=== PATIENT | male | born 1955 | race African-American/Black ===

== ENCOUNTER 2018-03-24 18:41 | Emergency (ER) | payer OTHER, SELFPAY ==
[2018-03-24 18:51] VITALS: BP 182/109; PULSE 83; RESP 18; TEMP 37.1; O2SAT 97; BMI 33.0
--- NOTE | 2018-03-24 19:14 | PC.NURSE ---
pt reports, developed right hip pain 3 days ago, right thigh like a knot, denies trauma,injuries. has been taking ibuprofen.
--- NOTE | 2018-03-24 19:19 | PC.NURSE ---
pain worsen , when he is laying down.
--- NOTE | 2018-03-24 19:26 | ED.LOWEXIN ---
HPI - Extremity Injury (Lower) General Chief Complaint: Extremity Injury, Lower Stated Complaint: HIP PAIN Time Seen by Provider: 03/24/18 18:45 History of Present Illness HPI Narrative: HPI 62-year-old male presents for evaluation of proximally 5 days of right-sided lumbar pain as sharp, radiates on his posterior lateral thigh to his knee, is worsened by movement, relieved by rest. Patient notes that pain began when he woke up. Patient presents due to persistence of pain. Patient notes that when he woke up with sometimes he was having spasming type pain in his anterior right 5. Muscle spasms do not appear to have reoccurred. Patient denies a history of recent trauma, fevers, chills, unexpected weight loss, decreased perineal sensation when toileting, difficulty urinating or incontinence, morning stiffness, IV drug use, alcoholism, recent invasive medical procedures, presyncope, abdominal pain, or dysuria. Smoking: denies. Anticoagulation: denies anticoagulation and Plavix, denies stents. M/S/F/SocHx notable for: please see HPI; remainder reviewed with patient and in chart. ROS: Negative constitutional, eye, cardiovascular, pulmonary, GI, , MSK, skin, neurologic, psychiatric, endocrine unless noted in the HPI. Exam Gen: Pleasant, non-toxic appearing, resting comfortably. HEENT: NC, AT, PEERL, EOMI. Resp: CTAB Card: RRR GI: ND, non-tender to palpation, no palpable midline masses, no palpable midline pulsatility. : No CVA tenderness to percussion bilaterally. MSK: No visible deformities, strength and tone WNL. No lower thoracic or lumbar spinal TTP, step offs or deformities. Focal right-sided tenderness to palpation immediately above the right buttock on a mid scapular line, no palpable abnormalities, no further paraspinal TTP. Right thigh visually normal without palpable abnormalities. BLE with 2+ DP pulses in sensation intact to touch. Skin: Normal color with no visible lesions. Neuro: AO x 3, no facial asymmetry, vision and hearing WNL. Straight leg raise test - negative right, negative left. BLE distal sensation intact, 5/5 dorsiflexion / plantarflexion bilaterally. Gait: mildly antalgic,otherwise normal, narrow based gait, able to walk unassisted and stand on heels and toes with full apparent strength. Psych: Mood and affect appropriate. MDM Previous chart, nursing note, and vitals reviewed. A: 62-year-old male presents for evaluation of proximally 5 days of right-sided lumbar pain as sharp, radiates on his posterior lateral thigh to his knee, is worsened by movement, relieved by rest. DDx & Evaluation: * Cauda equina - consider unlikely given normal perineal sensation, lack of incontinence or urinary retention. * Infection - abscess, vertebral osteomyelitis, and diskitis are unlikely as the patient is immunocompetent and is with an absence of infectious signs and risk factors on ROS, and a lack of point tenderness. * Fracture - doubt given the absence of spinal TTP and lack of prior trauma * Seronegative spondyloarthropathy - unlikely, no further evaluation currently indicated given the absence of morning stiffness and negative RA, psoriatic arthritis, and autoimmune disease history. * AAA or Dissection - given the absence of tobacco use, the lack of a palpable pulsatile abdominal mass, abdominal pain, presyncope, an abdominal aortic aneurysm as well as dissection is considered unlikely and further investigation is not currently indicated. * Spontaneous hematoma - doubt given lack of identifiable coagulopathies. * Spinal Metastases - given the unremarkable ROS, absence of point spinal tenderness on exam and the lack of discernible neurological deficit, no further testing regarding this etiology is currently indicated. * Soft tissue - suspect right side crampy type pain secondary to a muscle spasm, no findings suggestive of cellulitis, abscess, or necrotizing fasciitis on exam. Patient immunocompetent. * Consider sciatic type pain to be the most likely cause of patient's symptoms. Counseled patient regarding natural course of sciatic back pain, given return to care instructions, and recommendation for primary care physician follow up. Discharged with RX for [place] 5-325??8 tablets. Patient was notified of their elevated blood pressure and recommended to follow up with their primary care physician. As the patient is without evidence of acute end organ dysfunction no further emergent evaluation is indicated as per the 2013 [facility] clinical policy. Impression: Back Pain. (please reference below for remainder of encounter information) Related Data Allergies Allergy/AdvReac Type Severity Reaction Status Date / Time lisinopril [LISINOPRIL] Allergy Unknown tongue Unverified 02/13/18 12:04 swell SULFA Allergy Mild NOT SURE Uncoded 02/13/18 12:04 [facility] Social History Smoking Status: Former smoker Exam Initial Vital Signs Initial Vital Signs: Vital Signs Temperature 98.8 F 03/24/18 18:51 Pulse Rate 83 03/24/18 18:51 Respiratory Rate 18 03/24/18 18:51 Blood Pressure 182/109 H 03/24/18 18:51 Pulse Oximetry 97 03/24/18 18:51 Course Vital Signs - 8 hr 03/24/18 18:51 Temperature 98.8 F Pulse Rate 83 Respiratory Rate 18 Blood Pressure 182/109 H Pulse Oximetry 97
== END 2018-03-24 19:39 | disposition home or self-care (01) ==
PROVIDERS: Emergency Provider Emergency Medicine; PCP Family Medicine
DX: M54.5 Low back pain (principal)
CPT/HCPCS: 99282; 99283

== ENCOUNTER 2022-07-19 08:36 | Emergency (ER) | payer OTHER, SELFPAY ==
[2022-07-19] VITALS (16 sets, daily range): BP systolic 112–191; BP diastolic 61–135; PULSE 95–116; RESP 14–30; TEMP 36.5–38.6; O2SAT 94–99; BMI 34.2
--- NOTE | 2022-07-19 09:08 | ED_ITS ---
HPI - SOB/Dyspnea General Chief Complaint: Shortness of Breath/Dyspnea Stated Complaint: Thinks dehydrated- trouble urinating Time Seen by Provider: 07/19/22 08:53 Source: patient Mode of arrival: Family Vehicle Limitations: no limitations History of Present Illness HPI Narrative: The patient is a 66-year-old male history of hypertension hyperlipidemia ongoing shortness of breath presenting today with difficulty urinating. He states this morning he tried to go urinate he could not get his penis out any pedal over himself. He denies any swelling. He says he has had ongoing shortness of breath for a while he does take an Advair inhaler to help with his breathing. He denies any history of smoking COPD or asthma. He says over the last couple of days his breathing has gotten significantly worse it is definitely worse with exertion. He denies any orthopnea. He denies any peripheral edema. He has absolutely no chest pain. He says he has had a fever and a cough as well. He is currently febrile temperature 101.1?. He has a mild headache but denies any neck pain. He also states that he traveled 15 days ago to [place] for a family reunion. No prior history of PE or DVT Related Data Previous Rx's Medication Instructions Recorded hydrocodone 5 mg-acetaminophen 325 See Rx Instructions .Route 03/24/18 mg tablet ([place]) .COMPLEX PRN pain #8 tabs prednisone 20 mg tablet 40 mg PO DAILY #10 tabs 07/19/22 Allergies Allergy/AdvReac Type Severity Reaction Status Date / Time lisinopril [LISINOPRIL] Allergy Unknown tongue Verified 07/19/22 10:00 swell Sulfa (Sulfonamide Allergy Unknown Verified 07/19/22 10:00 Antibiotics) Review of Systems Review of Systems Narrative: GENERAL: See HPI HEENT: Denies sinus pain, ear pain, sore throat, difficulty swallowing, neck pain RESPIRATORY: See HPI CARDIOVASCULAR: Denies chest pain, palpitations, orthopnea, edema GASTROINTESTINAL: Denies nausea, vomiting, abdominal pain, diarrhea, constipation, melena. : Denies dysuria, frequency, incontinence, hematuria, urinary retention, flank pain. MUSCULOSKELETAL: Denies weakness, joint pain, or bony pain SKIN: No rash, no erythema, no pruritus NEUROLOGIC: Denies weakness, dizziness, headache, numbness, change in speech, confusion PSYCHIATRIC: No concerning psychosocial issues. 12 point review of systems is negative except for those stated above and HPI Patient History Social History Smoking Status: Former smoker Smoking Status: Former smoker tobacco type: cigarettes alcohol intake frequency: holidays/special occasions only Substance Use Type: does not use Exam Initial Vital Signs Initial Vital Signs: Vital Signs Pulse Rate 115 H 07/19/22 08:46 Blood Pressure 135/77 07/19/22 08:46 Pulse Oximetry 94 07/19/22 08:46 GENERAL: Alert pleasant 66-year-old male mild respiratory distress HEENT: Head atraumatic,EOMI, pupils reactive, face symmetric, moist mucous membranes CARDIOVASCULAR: Regular rate and rhythm without murmurs, rubs or gallops. RESPIRATORY: Tachypnea decreased breath sounds minimal wheezing speaks in full sentences ABDOMEN: Soft, nontender. Normoactive bowel sounds all 4 quadrants. No guarding or rebound. EXTREMITIES: Normal range of motion, no clubbing or edema. Neurovascularly intact NEUROLOGICAL: Alert and oriented x4 SKIN: Warm, dry, no laceration, no petechiae, no rashes or lesions. Scores CURB-65 Confusion: No BUN >19mg/dL (>7mmol/L): No Respiratory rate greater or equal to 30: Yes SBP <90mmHg or DBP less or equal to 60mmHg: No Age 65 or Older: No CURB-65 Total: 1 Score 0-1 Outpatient care, Score 2 Inpt vs. Obs, Score 3 or over Inpt admit with ICU for score of 4-5 Course Orders Ordered: ED Orders 07/19/22 10:21 CT angio chest PE protocol Stat 07/19/22 10:50 Respiratory Panel (Film Array) Stat Discontinued Medications Acetaminophen (Acetaminophen 325 Mg Tablet) 975 mg PO NOW ONE Stop: 07/19/22 09:13 Last Admin: 07/19/22 09:18 Dose: 975 mg Documented By: ROBYN Albuterol (Albuterol 2.5 Mg/3 Ml Neb (Adult)) 2.5 mg INH NOW ONE Stop: 07/19/22 11:12 Last Admin: 07/19/22 11:38 Dose: 2.5 mg Documented By: BISHOP Albuterol/Ipratropium (Albuterol/Ipratropium 3 Ml Ampul) 3 ml INH NOW ONE Stop: 07/19/22 09:09 Last Admin: 07/19/22 09:16 Dose: 3 ml Documented By: GELY Sodium Chloride (Normal Saline 0.9%) 500 mls @ 1,000 mls/hr IV BOLUS ONE Stop: 07/19/22 09:39 Last Infusion: 07/19/22 09:53 Dose: 0 mls/hr Documented By: Admin: 07/19/22 09:18 Dose: 1,000 mls/hr Documented By: ROBYN Ceftriaxone Sodium 2,000 mg/ (Sodium Chloride) 100 mls @ 200 mls/hr IV NOW ONE Stop: 07/19/22 09:59 Last Infusion: 07/19/22 11:23 Dose: 0 mls/hr Documented By: Admin: 07/19/22 10:38 Dose: 200 mls/hr Documented By: ROBYN Azithromycin 500 mg/ Dextrose 250 mls @ 250 mls/hr IV NOW ONE Stop: 07/19/22 09:59 Last Infusion: 07/19/22 12:27 Dose: 0 mls/hr Documented By: Admin: 07/19/22 11:24 Dose: 250 mls/hr Documented By: ROBYN Sodium Chloride (Normal Saline 0.9%) 1,000 mls @ 1,000 mls/hr IV BOLUS PRN PRN Reason: Fluid replacement Last Infusion: 07/19/22 12:36 Dose: 0 mls/hr Documented By: Admin: 07/19/22 11:34 Dose: 1,000 mls/hr Documented By: ROBYN Ketorolac Tromethamine (Ketorolac 30 Mg/Ml Vial) 15 mg IV NOW ONE Stop: 07/19/22 09:59 Last Admin: 07/19/22 10:38 Dose: 15 mg Documented By: ROBYN Methylprednisolone (Methylprednisolone 125 Mg/2 Ml Vial) 125 mg IV NOW ONE Stop: 07/19/22 11:12 Last Admin: 07/19/22 11:34 Dose: 125 mg Documented By: ROBYN Vital Signs Vital signs: Vital Signs - 8 hr 07/19/22 11:38 07/19/22 11:00 07/19/22 11:00 Temperature Pulse Rate 97 H 97 H Respiratory Rate 16 18 Blood Pressure 129/66 Pulse Oximetry 99 97 Oxygen Delivery Method Room Air 07/19/22 11:30 07/19/22 11:30 07/19/22 12:00 Temperature 99.5 F Pulse Rate 95 H Respiratory Rate 20 Blood Pressure 112/62 114/63 Pulse Oximetry 96 Oxygen Delivery Method 07/19/22 12:00 07/19/22 12:30 Temperature Pulse Rate 96 H 96 H Respiratory Rate 19 22 Blood Pressure Pulse Oximetry 96 97 Oxygen Delivery Method MDM - SOB/Dyspnea Lab Data Result diagrams: 07/19/22 09:04 07/19/22 09:04 Labs: Lab Results 07/19/22 07/19/22 07/19/22 Range/Units 09:04 09:04 09:04 WBC 12.1 H (4.5-11.0) X10^3/uL RBC 4.03 L (4.5-5.9) X10^6/uL Hgb 12.1 L (13.5-17.5) g/dL Hct 35.7 L (41-53) % MCV 88.6 (80-100) fL MCH 30.0 (26-34) PG MCHC 33.9 (30-36) % RDW 12.8 (11.6-14.8) % Plt Count 199 (150-400) X10^3/uL Neut % (Auto) 82.8 H (50-75) % Lymph % (Auto) 8.5 L (25-40) % [place] % (Auto) 8.0 (3-14) % Eos % (Auto) 0.0 L (2-4) % Baso % (Auto) 0.7 (0-2) % Neut # (Auto) 10143 H (8267-7477) /uL Lymph # (Auto) 1000 L (6625-4031) /uL [place] # (Auto) 1000 H (0-900) /uL Eos # (Auto) 0 (0-450) /uL Baso # (Auto) 100 (0-100) /uL D-Dimer (<500) ng/ml Sodium 133 L (137-145) mmol/L Potassium 3.6 (3.4-5.1) mmol/L Chloride 97 L (98-107) mmol/L Carbon Dioxide 26 (22-32) mmol/L BUN 15 (9-20) mg/dL Creatinine 1.31 H (0.66-1.25) mg/dL Estimated GFR > 60 (>60) mL/min BUN/Creatinine Ratio 11.5 (6-22) Glucose 140 H (80-110) mg/dL Lactate 2.3 H (0.7-2.1) mmol/L Calcium 8.7 (8.4-10.2) mg/dL Total Bilirubin 1.1 (0.2-1.3) mg/dL AST 55 (17-59) IU/L ALT 41 (<50) IU/L Alkaline Phosphatase 89 (38-126) U/L Total Creatine Kinase (55-170) U/L CK-MB (CK-2) (<2.37) ng/mL CK-MB (CK-2) Rel Index (1.5-5.0) % Troponin I (0.01-0.034) ng/mL NT-Pro-B Natriuret Pep (<125) pg/mL Total Protein 8.4 H (6.3-8.2) g/dL Albumin 4.1 (3.5-5.0) g/dL Globulin 4.3 H (1.7-4.1) g/dL Albumin/Globulin Ratio 1.0 (1.0-2.8) Procalcitonin (<0.5) ng/mL Chlamy pneumoniae PCR (Not Detect) Adenovirus (PCR) (Not Detect) B. pertussis DNA (PCR) (Not Detecte) B.parapertussis DNA PCR (Not Detecte) Coronavirus OC43 (PCR) (Not Detect) Coronavirus HKU1 (PCR) (Not Detect) Coronavirus 229E (PCR) (Not Detect) SARS-CoV-2 (PCR) (Negative) Coronavirus NL63 (PCR) (Not Detect) Human Metapneumovir PCR (Not Detect) Influenza Type A (PCR) (Not Detect) Influenza Type B (PCR) (Not Detect) M. pneumoniae (PCR) (Not Detect) Parainfluenza 1 (PCR) (Not Detect) Parainfluenza 2 (PCR) (Not Detect) Parainfluenza 3 (PCR) (Not Detect) Parainfluenza 4 (PCR) (Not Detect) RSV (PCR) (Not Detect) Entero/Rhino (PCR) (Not Detect) 09/14/22 09/14/22 09/14/22 Range/Units 09:04 09:04 09:04 WBC (4.5-11.0) X10^3/uL RBC (4.5-5.9) X10^6/uL Hgb (13.5-17.5) g/dL Hct (41-53) % MCV (80-100) fL MCH (26-34) PG MCHC (30-36) % RDW (11.6-14.8) % Plt Count (150-400) X10^3/uL Neut % (Auto) (50-75) % Lymph % (Auto) (25-40) % [place] % (Auto) (3-14) % Eos % (Auto) (2-4) % Baso % (Auto) (0-2) % Neut # (Auto) (1729-3088) /uL Lymph # (Auto) (8460-1358) /uL [place] # (Auto) (0-900) /uL Eos # (Auto) (0-450) /uL Baso # (Auto) (0-100) /uL D-Dimer 1466 H (<500) ng/ml Sodium (137-145) mmol/L Potassium (3.4-5.1) mmol/L Chloride (98-107) mmol/L Carbon Dioxide (22-32) mmol/L BUN (9-20) mg/dL Creatinine (0.66-1.25) mg/dL Estimated GFR (>60) mL/min BUN/Creatinine Ratio (6-22) Glucose (80-110) mg/dL Lactate (0.7-2.1) mmol/L Calcium (8.4-10.2) mg/dL Total Bilirubin (0.2-1.3) mg/dL AST (17-59) IU/L ALT (<50) IU/L Alkaline Phosphatase (38-126) U/L Total Creatine Kinase 1420 H (55-170) U/L CK-MB (CK-2) 2.27 (<2.37) ng/mL CK-MB (CK-2) Rel Index 0.2 L (1.5-5.0) % Troponin I < 0.012 (0.01-0.034) ng/mL NT-Pro-B Natriuret Pep 324 H (<125) pg/mL Total Protein (6.3-8.2) g/dL Albumin (3.5-5.0) g/dL Globulin (1.7-4.1) g/dL Albumin/Globulin Ratio (1.0-2.8) Procalcitonin (<0.5) ng/mL Chlamy pneumoniae PCR (Not Detect) Adenovirus (PCR) (Not Detect) B. pertussis DNA (PCR) (Not Detecte) B.parapertussis DNA PCR (Not Detecte) Coronavirus OC43 (PCR) (Not Detect) Coronavirus HKU1 (PCR) (Not Detect) Coronavirus 229E (PCR) (Not Detect) SARS-CoV-2 (PCR) Negative (Negative) Coronavirus NL63 (PCR) (Not Detect) Human Metapneumovir PCR (Not Detect) Influenza Type A (PCR) (Not Detect) Influenza Type B (PCR) (Not Detect) M. pneumoniae (PCR) (Not Detect) Parainfluenza 1 (PCR) (Not Detect) Parainfluenza 2 (PCR) (Not Detect) Parainfluenza 3 (PCR) (Not Detect) Parainfluenza 4 (PCR) (Not Detect) RSV (PCR) (Not Detect) Entero/Rhino (PCR) (Not Detect) 07/19/22 07/19/22 Range/Units 09:04 10:50 WBC (4.5-11.0) X10^3/uL RBC (4.5-5.9) X10^6/uL Hgb (13.5-17.5) g/dL Hct (41-53) % MCV (80-100) fL MCH (26-34) PG MCHC (30-36) % RDW (11.6-14.8) % Plt Count (150-400) X10^3/uL Neut % (Auto) (50-75) % Lymph % (Auto) (25-40) % [place] % (Auto) (3-14) % Eos % (Auto) (2-4) % Baso % (Auto) (0-2) % Neut # (Auto) (3623-0753) /uL Lymph # (Auto) (5208-0792) /uL [place] # (Auto) (0-900) /uL Eos # (Auto) (0-450) /uL Baso # (Auto) (0-100) /uL D-Dimer (<500) ng/ml Sodium (137-145) mmol/L Potassium (3.4-5.1) mmol/L Chloride (98-107) mmol/L Carbon Dioxide (22-32) mmol/L BUN (9-20) mg/dL Creatinine (0.66-1.25) mg/dL Estimated GFR (>60) mL/min BUN/Creatinine Ratio (6-22) Glucose (80-110) mg/dL Lactate (0.7-2.1) mmol/L Calcium (8.4-10.2) mg/dL Total Bilirubin (0.2-1.3) mg/dL AST (17-59) IU/L ALT (<50) IU/L Alkaline Phosphatase (38-126) U/L Total Creatine Kinase (55-170) U/L CK-MB (CK-2) (<2.37) ng/mL CK-MB (CK-2) Rel Index (1.5-5.0) % Troponin I (0.01-0.034) ng/mL NT-Pro-B Natriuret Pep (<125) pg/mL Total Protein (6.3-8.2) g/dL Albumin (3.5-5.0) g/dL Globulin (1.7-4.1) g/dL Albumin/Globulin Ratio (1.0-2.8) Procalcitonin 0.24 (<0.5) ng/mL Chlamy pneumoniae PCR Not detected (Not Detect) Adenovirus (PCR) Not detected (Not Detect) B. pertussis DNA (PCR) Not detected (Not Detecte) B.parapertussis DNA PCR Not detected (Not Detecte) Coronavirus OC43 (PCR) Not detected (Not Detect) Coronavirus HKU1 (PCR) Not detected (Not Detect) Coronavirus 229E (PCR) Not detected (Not Detect) SARS-CoV-2 (PCR) Not detected (Negative) Coronavirus NL63 (PCR) Not detected (Not Detect) Human Metapneumovir PCR Not detected (Not Detect) Influenza Type A (PCR) Detected H (Not Detect) Influenza Type B (PCR) Not detected (Not Detect) M. pneumoniae (PCR) Not detected (Not Detect) Parainfluenza 1 (PCR) Not detected (Not Detect) Parainfluenza 2 (PCR) Not detected (Not Detect) Parainfluenza 3 (PCR) Not detected (Not Detect) Parainfluenza 4 (PCR) Not detected (Not Detect) RSV (PCR) Not detected (Not Detect) Entero/Rhino (PCR) Not detected (Not Detect) Imaging Data Chest x-ray: Radiologist's Impression: XRay Report Signed Patient: Casie Nye MR#: [id number] : 1955 Acct:[id number] Age/Sex: 66 / M Date of Service: 07/19/22 Loc: ED Accession Number: [id number] ?? Procedure: XR chest 1V Ordering Provider: Donna Escobar D.O. PROCEDURE:? XR CHEST 1V ? INDICATIONS:? sob fever ? TECHNIQUE:? One view of the chest was acquired.? ? COMPARISON:? [facility], , CHEST 1 VIEW, 10/31/2015, 7:46.? [facility], , CHEST 1 VIEW, 05/21/2013, 5:43. ? FINDINGS:? ? Surgical changes and devices:? None.? ? Lungs and pleura:? Lungs are clear.? No pleural effusions or pneumothorax.? ? Mediastinum:? Mediastinal contours appear normal.? Heart size is normal.? ? Bones and chest wall:? No suspicious bony lesions.? Overlying soft tissues appear unremarkable.? ? IMPRESSION:? No acute radiographic abnormality. ? ? Dictated by: Rocky White M.D. on 07/19/2022 at 9:17 ? ? Approved by: Rocky White M.D. on 07/19/2022 at 9:18 ? CT scan - chest: Radiologist's Impression: Signed Patient: Casie Nye MR#: [id number] : 1955 Acct:[id number] Age/Sex: 66 / M Date of Service: 07/19/22 Loc: ED Accession Number: [id number] ?? Procedure: CT angio chest PE protocol Ordering Provider: Donna Escobar D.O. PROCEDURE:? CT ANGIO CHEST PE PROTOCOL ? INDICATIONS:? fever sob high dimer ? TECHNIQUE:? After the administration of intravenous contrast, 2 mm thick sections acquired from the pulmonary apices to the posterior costophrenic angles.? For radiation dose reduction, the following was used:? automated exposure control, adjustment of mA and/or kV according to patient size.? ? COMPARISON:? None. ? FINDINGS:? Image quality:? Excellent.? ? Pulmonary arteries:? Pulmonary arteries are normal in size, and demonstrate no intraluminal filling defects to suggest central pulmonary embolism.? ? Lungs and pleura:? Minimal pleural based atelectasis and or infiltrate noted in the left lower lobe.? No pleural effusions or pneumothorax.? Central and peripheral airways are patent.? ? Mediastinum:? Heart size is normal, without pericardial effusion.? No mediastinal or hilar adenopathy.? Thoracic aorta is normal in caliber and enhancement.? Esophagus is normal in caliber, without hiatal hernia.? ? Bones and chest wall:? No suspicious bony lesions.? Ribs and thoracic spine appear intact throughout.? Thyroid gland unremarkable.? No axillary or supraclavicular adenopathy.? ? Abdomen:? Visualized upper abdominal solid organs appear normal in the early arterial phase of enhancement.? Cholecystectomy. ? IMPRESSION:? ? Trace left lower lobe pleural based atelectasis and/or infiltrate in the left lower lobe dependently.? Otherwise unremarkable CT angiogram of the chest without evidence of pulmonary embolism, aortic dissection or aneurysm. ? ? ? Approved by: Tl Reeves M.D. on 07/19/2022 at 9:46? ECG Data Interpretation: Sinus tachycardia rate 109 AK interval 148 QRS [address] changes similar to previous EKG MDM Narrative Medical decision making narrative: Patient's concern is that he urinated on himself and thinks he might be dehydrated however is clearly tachypneic short of breath. Concern for other etiologies sepsis orders, COVID, PE un CHF The patient has mild leukocytosis of 12. Minimal elevated lactate of 2.3, mild elevation of CPK of 1400. CT angio does not show any sort of pulmonary embolism or pneumonia chest x-ray is also clear. Respiratory panel is done case patient just does not look as though he feels good and is obviously febrile. He is empirically given doses of Rocephin azithromycin for possible community-acquired pneumonia that has delayed on imaging. However respiratory panel is positive for influenza a which would explain his elevated CPK. He received 1500 cc of fluid. His breathing is significantly better after bronchodilators. He ambulated in the ED with a pulse oximeter oxygen remained well above 90% patient feels much better and able to go home. He is given return precautions. Due to his ongoing asthma will also send him home with steroids. Discharge Plan Departure Patient Disposition: Home Clinical Impression: Influenza A Instructions: DI for Influenza -- Adult Activity Restrictions/Additional Instructions: *You have been diagnosed with influenza *What to do: At this time please continue to drink fluids fluids rest. No antibiotics are indicated at this time. *Continue to take medications as directed Tylenol 1000 mg every 6 hours if needed for pain or fever Ibuprofen 600 mg every 6 hours if needed for pain or fever Albuterol 1-2 puffs every 4 hours if needed for coughing or shortness of breath Prednisone 40 mg once a day for 5 days *Follow up with your primary care provider in 2-3 days or call [phone] *Return to ER if you should have increasing shortness of breath weakness not tolerating fluids [or] any new, worsening or concerning symptoms Prescriptions: New prednisone 20 mg tablet 40 mg PO DAILY Qty: 10 0RF No Action hydrocodone-acetaminophen [[place]] 5-325 mg tablet See Rx Instructions .ROUTE .COMPLEX PRN (Reason: pain) Qty: 8 0RF Rx Instructions: 1-2 tabs qhs prn back pain. Referrals: Ashley Last MD [Primary Care Provider] - Visit Report Forms: Patient Portal/API
--- NOTE | 2022-07-19 09:09 | DI.RAD.S_ITS ---
PROCEDURE: XR CHEST 1V INDICATIONS: sob fever TECHNIQUE: One view of the chest was acquired. COMPARISON: [facility], CHEST 1 VIEW, 10/31/2015, 7:46. [facility], CHEST 1 VIEW, 05/21/2013, 5:43. FINDINGS: Surgical changes and devices: None. Lungs and pleura: Lungs are clear. No pleural effusions or pneumothorax. Mediastinum: Mediastinal contours appear normal. Heart size is normal. Bones and chest wall: No suspicious bony lesions. Overlying soft tissues appear unremarkable. IMPRESSION: No acute radiographic abnormality. Dictated by: Rocky White M.D. on 07/19/2022 at 9:17 Approved by: Rocky White M.D. on 07/19/2022 at 9:18
[2022-07-19 09:15] LABS: Add Manual Diff / Slide Review NO; Basophils Absolute Auto 100 /uL (0-100); Basophils Percent Auto 0.7 % (0-2); Eosinophils Absolute Auto 0 /uL (0-450); Hematocrit 35.7 % (41-53); Hemoglobin 12.1 g/dL (13.5-17.5); Lymphocytes Absolute Auto 1000 /uL (1100-4500); Lymphocytes Percent Auto 8.5 % (25-40); Mean Corpuscular HGB Conc 33.9 % (30-36); Mean Corpuscular Volume 88.6 fL (80-100); Monocytes Absolute Auto 1000 /uL (0-900); Neutrophils Absolute Auto 10000 /uL (1500-7000); Neutrophils Percent Auto 82.8 % (50-75); Platelet Count 199 X10^3/uL (150-400); Red Blood Cell Count 4.03 X10^6/uL (4.5-5.9); Red Cell Distribution Width 12.8 % (11.6-14.8); White Blood Cell Count 12.1 X10^3/uL (4.5-11.0)
[2022-07-19] MEDS: ALBUTEROL/IPRATROPIUM 3 ML AMPUL INH (09:16)
[2022-07-19] MEDS: SODIUM CHLORIDE 0.9% 500 ML 1000 ML IV (09:18)
[2022-07-19] MEDS: ACETAMINOPHEN 325 MG TABLET 975 MG PO (09:18)
[2022-07-19 09:33] LABS: D Dimer 1466 ng/ml (<500)
[2022-07-19 09:37] LABS: Creatine Kinase 1420 U/L (55-170); Lactate (Lactic Acid) 2.3 mmol/L (0.7-2.1)
[2022-07-19 09:39] LABS: Alanine Aminotransferase 41 IU/L (<50); Albumin 4.1 g/dL (3.5-5.0); Alkaline Phosphatase 89 U/L (38-126); Aspartate Aminotransferase 55 IU/L (17-59); BUN Creatinine Ratio 11.5 (6-22); Bilirubin Total 1.1 mg/dL (0.2-1.3); Blood Urea Nitrogen 15 mg/dL (9-20); Calcium 8.7 mg/dL (8.4-10.2); Carbon Dioxide 26 mmol/L (22-32); Chloride 97 mmol/L (98-107); Estimated Glomerular Filt Rate > 60 mL/min (>60); Globulin 4.3 g/dL (1.7-4.1); Glucose 140 mg/dL (80-110); HEMOLYSIS 18 (0-50); Potassium 3.6 mmol/L (3.4-5.1); Sodium 133 mmol/L (137-145); Total Protein 8.4 g/dL (6.3-8.2)
[2022-07-19 09:47] LABS: NT-proBNP (BNP-Adult 18+) 324 pg/mL (<125)
[2022-07-19 09:48] LABS: COVID19 -Nasal RAPID Negative (Negative)
[2022-07-19 09:54] LABS: Procalcitonin 0.24 ng/mL (<0.5)
--- NOTE | 2022-07-19 10:21 | DI.CT.S_ITS ---
PROCEDURE: CT ANGIO CHEST PE PROTOCOL INDICATIONS: fever sob high dimer TECHNIQUE: After the administration of intravenous contrast, 2 mm thick sections acquired from the pulmonary apices to the posterior costophrenic angles. For radiation dose reduction, the following was used: automated exposure control, adjustment of mA and/or kV according to patient size. COMPARISON: None. FINDINGS: Image quality: Excellent. Pulmonary arteries: Pulmonary arteries are normal in size, and demonstrate no intraluminal filling defects to suggest central pulmonary embolism. Lungs and pleura: Minimal pleural based atelectasis and or infiltrate noted in the left lower lobe. No pleural effusions or pneumothorax. Central and peripheral airways are patent. Mediastinum: Heart size is normal, without pericardial effusion. No mediastinal or hilar adenopathy. Thoracic aorta is normal in caliber and enhancement. Esophagus is normal in caliber, without hiatal hernia. Bones and chest wall: No suspicious bony lesions. Ribs and thoracic spine appear intact throughout. Thyroid gland unremarkable. No axillary or supraclavicular adenopathy. Abdomen: Visualized upper abdominal solid organs appear normal in the early arterial phase of enhancement. Cholecystectomy. IMPRESSION: Trace left lower lobe pleural based atelectasis and/or infiltrate in the left lower lobe dependently. Otherwise unremarkable CT angiogram of the chest without evidence of pulmonary embolism, aortic dissection or aneurysm. Approved by: Tl Reeves M.D. on 07/19/2022 at 9:46
[2022-07-19 10:23] LABS: CKMB % Relative Index 0.2 % (1.5-5.0); Creatine Kinase MB 2.27 ng/mL (<2.37); Troponin I < 0.012 ng/mL (0.01-0.034)
[2022-07-19] MEDS: KETOROLAC 30 MG/ML VIAL 15 MG IV (10:38)
[2022-07-19] MEDS: cefTRIAXone 2,000 MG in SODIUM CHLORIDE 0.9% 100 ML 200 MG IV (10:38)
[2022-07-19 11:08] LABS: Reflexed Lactate in 2 Hours Y
[2022-07-19] MEDS: AZITHROMYCIN 500 MG in DEXTROSE 5% IN WATER 250 ML 250 MG IV (11:24)
[2022-07-19] MEDS: methylPREDNISolone 125 MG/2 ML VIAL IV (11:34)
[2022-07-19] MEDS: SODIUM CHLORIDE 0.9% 1,000 ML 1000 ML IV (11:34)
[2022-07-19] MEDS: ALBUTEROL 2.5 MG/3 ML NEB (ADULT) INH (11:38)
[2022-07-19 11:43] LABS: Adenovirus Not Detected (Not Detect); B. parapertussis Not Detected (Not Detecte); Bordetella pertussis Not Detected (Not Detecte); Chlamydophila pneumoniae Not Detected (Not Detect); Coronavirus 229E Not Detected (Not Detect); Coronavirus HKU1 Not Detected (Not Detect); Coronavirus NL 63 Not Detected (Not Detect); Coronavirus OC43 Not Detected (Not Detect); Human Metapneumovirus Not Detected (Not Detect); Human Rhinovirus/Enterovirus Not Detected (Not Detect); Influenza A Detected (Not Detect); Influenza B Not Detected (Not Detect); Mycoplasma pneumoniae Not Detected (Not Detect); Parainfluenza Virus 1 Not Detected (Not Detect); Parainfluenza Virus 2 Not Detected (Not Detect); Parainfluenza Virus 3 Not Detected (Not Detect); Parainfluenza Virus 4 Not Detected (Not Detect); Respiratory Syncytial Virus Not Detected (Not Detect); SARS- CoV-2 Not Detected (Not Detecte)
== END 2022-07-19 13:00 | disposition home or self-care (01) ==
PROVIDERS: Emergency Provider Emergency Medicine; PCP Family Medicine
DX: J10.1 Influenza due to other identified influenza virus with other respiratory manifestations (principal); R50.9 Fever, unspecified; R06.02 Shortness of breath; Z20.822 Contact with and (suspected) exposure to COVID-19
CPT/HCPCS: 36415; 71045; 71275; 80053; 82550; 82553; 83605; 83880; 84145; 84484; 85025; 85379; 87040; 87633; 87635; 93005; 94640; 96361; 96365; 96367; 96375; 99284; C9803; J0696; J1885; J2930; J7613

== ENCOUNTER → 2023-02-27 08:40 | Outpatient (CLI) | payer MEDICARE, OTHER, SELFPAY ==
[2023-02-27 09:40] LABS: Add Manual Diff / Slide Review NO; Basophils Absolute Auto 100 /uL (0-100); Basophils Percent Auto 1.2 % (0-2); Eosinophils Absolute Auto 300 /uL (0-450); Eosinophils Percent Auto 4.1 % (2-4); Hematocrit 37.8 % (41-53); Hemoglobin 12.8 g/dL (13.5-17.5); Lymphocytes Absolute Auto 2800 /uL (1100-4500); Lymphocytes Percent Auto 36.6 % (25-40); Mean Corpuscular HGB Conc 33.8 % (30-36); Mean Corpuscular Hemoglobin 30.3 PG (26-34); Mean Corpuscular Volume 89.7 fL (80-100); Monocytes Absolute Auto 700 /uL (0-900); Monocytes Percent Auto 8.5 % (3-14); Neutrophils Absolute Auto 3800 /uL (1500-7000); Neutrophils Percent Auto 49.6 % (50-75); Platelet Count 198 X10^3/uL (150-400); Red Blood Cell Count 4.21 X10^6/uL (4.5-5.9); Red Cell Distribution Width 12.6 % (11.6-14.8); White Blood Cell Count 7.7 X10^3/uL (4.5-11.0)
[2023-02-27 10:12] LABS: Alanine Aminotransferase 38 IU/L (<50); Albumin 4.1 g/dL (3.5-5.0); Albumin Globulin Ratio 1.2 (1.0-2.8); Alkaline Phosphatase 97 U/L (38-126); Aspartate Aminotransferase 30 IU/L (17-59); BUN Creatinine Ratio 13.6 (6-22); Bilirubin Total 1.3 mg/dL (0.2-1.3); Blood Urea Nitrogen 17 mg/dL (9-20); Calcium 9.1 mg/dL (8.4-10.2); Carbon Dioxide 28 mmol/L (22-32); Chloride 104 mmol/L (98-107); Cholesterol 133 mg/dL (140-199); Estimated Glomerular Filt Rate > 60 mL/min (>60); Globulin 3.4 g/dL (1.7-4.1); Glucose 96 mg/dL (80-110); HDL Cholesterol 30 mg/dL (40-60); HEMOLYSIS < 15 (0-50); LDL Cholesterol Calculated 66 mg/dL (<100); Potassium 3.3 mmol/L (3.4-5.1); Sodium 140 mmol/L (137-145); Total Protein 7.5 g/dL (6.3-8.2); Triglycerides 186 mg/dL (35-150)
[2023-02-28 07:36] LABS: x Labcorp Estim. Avg Glu (eAG) 100 mg/dL (.); x Labcorp Hemoglobin A1c 5.1 % (4.8-5.6)
== END ==
PROVIDERS: PCP Family Medicine; Referring Provider Family Medicine; Visit Provider Family Medicine
DX: E78.5 Hyperlipidemia, unspecified; D64.9 Anemia, unspecified; I10 Essential (primary) hypertension; N18.30 Chronic kidney disease, stage 3 unspecified
CPT/HCPCS: 36415; 80053; 80061; 83036; 85025

== ENCOUNTER → 2023-03-28 09:00 | Outpatient (CLI) | payer MEDICARE, OTHER, SELFPAY ==
[2023-03-28 10:32] LABS: BUN Creatinine Ratio 13.3 (6-22); Blood Urea Nitrogen 19 mg/dL (9-20); Calcium 9.2 mg/dL (8.4-10.2); Carbon Dioxide 28 mmol/L (22-32); Chloride 102 mmol/L (98-107); Estimated Glomerular Filt Rate 54 mL/min (>60); Glucose 112 mg/dL (80-110); HEMOLYSIS < 15 (0-50); Potassium 3.8 mmol/L (3.4-5.1); Sodium 139 mmol/L (137-145)
[2023-03-30 16:46] LABS: Fecal Immunochemical Test Negative (Negative)
== END ==
PROVIDERS: PCP Family Medicine; Referring Provider Family Medicine; Visit Provider Family Medicine
DX: E87.6 Hypokalemia (principal); I10 Essential (primary) hypertension; N18.30 Chronic kidney disease, stage 3 unspecified; Z12.11 Encounter for screening for malignant neoplasm of colon
CPT/HCPCS: 36415; 80048; 82274

== ENCOUNTER → 2023-11-28 13:33 | Outpatient (CLI) | payer MEDICARE, OTHER, SELFPAY ==
[2023-11-28 15:25] LABS: BUN Creatinine Ratio 16.1 (6-22); Blood Urea Nitrogen 24 mg/dL (9-20); Calcium 9.6 mg/dL (8.4-10.2); Carbon Dioxide 26 mmol/L (22-32); Chloride 101 mmol/L (98-107); Estimated Glomerular Filt Rate 52 mL/min (>60); Glucose 127 mg/dL (80-110); HEMOLYSIS < 15 (0-50); Potassium 3.2 mmol/L (3.4-5.1); Sodium 137 mmol/L (137-145)
[2023-11-28 20:10] LABS: Microalbumin Urine Random 5.7 mg/dL (0-1.6)
[2023-11-28 20:51] LABS: Creatinine Urine Random 370.9 mg/dL; Microalbumi Creatinin Ratio Ur 15.3 ug/mg CR (<30)
== END ==
LOC: LAB 13:35
PROVIDERS: PCP Family Medicine; Referring Provider Family Medicine; Visit Provider Family Medicine
DX: N18.30 Chronic kidney disease, stage 3 unspecified (principal); I10 Essential (primary) hypertension
CPT/HCPCS: 36415; 80048; 82043; 82570

== ENCOUNTER → 2024-03-12 15:36 | Outpatient (CLI) | payer MEDICARE, OTHER, SELFPAY ==
[2024-03-12 16:32] LABS: Add Manual Diff / Slide Review NO; Basophils Absolute Auto 100 /uL (0-100); Basophils Percent Auto 0.8 % (0-2); Eosinophils Absolute Auto 0 /uL (0-450); Eosinophils Percent Auto 0.2 % (2-4); Hematocrit 38.7 % (41-53); Hemoglobin 12.8 g/dL (13.5-17.5); Lymphocytes Absolute Auto 2400 /uL (1100-4500); Lymphocytes Percent Auto 19.5 % (25-40); Mean Corpuscular HGB Conc 32.9 % (30-36); Mean Corpuscular Hemoglobin 29.9 PG (26-34); Mean Corpuscular Volume 90.7 fL (80-100); Monocytes Absolute Auto 1100 /uL (0-900); Monocytes Percent Auto 9.5 % (3-14); Neutrophils Absolute Auto 8400 /uL (1500-7000); Platelet Count 247 X10^3/uL (150-400); Red Blood Cell Count 4.27 X10^6/uL (4.5-5.9); Red Cell Distribution Width 12.9 % (11.6-14.8); White Blood Cell Count 12.1 X10^3/uL (4.5-11.0)
[2024-03-12 16:59] LABS: BUN Creatinine Ratio 13.1 (6-22); Blood Urea Nitrogen 18 mg/dL (9-20); C-Reactive Protein Quant 3.4 mg/dL (<1.0); Calcium 9.9 mg/dL (8.4-10.2); Carbon Dioxide 24 mmol/L (22-32); Chloride 106 mmol/L (98-107); Estimated Glomerular Filt Rate 57 mL/min (>60); Glucose 109 mg/dL (80-110); HEMOLYSIS < 15 (0-50); Potassium 4.6 mmol/L (3.4-5.1); Sodium 140 mmol/L (137-145); Uric Acid 7.4 mg/dL (3.5-8.5)
[2024-03-12 17:01] LABS: Erythrocyte Sedimentation Rate 59 MM/HR (0-15)
[2024-03-12 17:48] LABS: Appearance Urine UA CLEAR; Bilirubin Urine UA NEGATIVE (NEGATIVE); Color Urine UA YELLOW; Glucose Urine UA NEGATIVE (Negative); Ketones Urine UA NEGATIVE (NEGATIVE); Leukocyte Esterase Urine UA NEGATIVE (NEGATIVE); Nitrite Urine UA NEGATIVE (Negative); Occult Blood Urine UA NEGATIVE (Negative); Protein Urine UA NEGATIVE (Negative); Specific Gravity Urine UA >=1.030 (1.000-1.035); Urobilinogen Urine UA 0.2 E.U./dL (0.2); pH Urine UA 5.5 (4.5-8.0)
[2024-03-12 18:00] LABS: Bacteria Urine None Seen; Culture Indicated Urine Cult Not Indicated; Mucus Urine 1+ (Negative); RBC Urine None Seen (0-5/HPF); Squamous Epithelial Cell Urine None Seen (0-5/HPF); Urine Volume 10mL (spun); WBC Urine 0-1/HPF (0-5/HPF)
== END ==
PROVIDERS: PCP Family Medicine; Referring Provider Family Medicine; Visit Provider Family Medicine
DX: I12.9 Hypertensive chronic kidney disease with stage 1 through stage 4 chronic kidney disease, or unspecified chronic kidney disease (principal); N18.30 Chronic kidney disease, stage 3 unspecified; E78.5 Hyperlipidemia, unspecified; M10.9 Gout, unspecified
CPT/HCPCS: 36415; 80048; 81001; 84550; 85025; 85651; 86140

== ENCOUNTER → 2024-04-04 15:15 | Outpatient (CLI) | payer MEDICARE, OTHER, SELFPAY ==
[2024-04-04 17:02] LABS: Cholesterol 130 mg/dL (140-199); HDL Cholesterol 32 mg/dL (40-60); LDL Cholesterol Calculated 73 mg/dL (<100); Triglycerides 125 mg/dL (35-150)
[2024-04-04 17:28] LABS: Prostate Specific Antigen Scrn 0.446 ng/mL (0.1-4.0)
[2024-04-07 04:57] LABS: Hep C Virus Ab w/Reflex Quant NEGATIVE s/c (NEGATIVE)
== END ==
PROVIDERS: PCP Family Medicine; Referring Provider Family Medicine; Visit Provider Family Medicine
DX: Z00.00 Encounter for general adult medical examination without abnormal findings (principal); E78.5 Hyperlipidemia, unspecified; Z12.5 Encounter for screening for malignant neoplasm of prostate; Z11.59 Encounter for screening for other viral diseases
CPT/HCPCS: 36415; 80061; 86803; G0103

== ENCOUNTER → 2025-01-14 11:35 | Outpatient (CLI) | payer MEDICARE, OTHER, SELFPAY ==
--- NOTE | 2025-01-14 11:39 | DI.RAD.S_ITS ---
PROCEDURE: XR FOOT RT MIN 3V INDICATIONS: pain/redness/swelling top of feet TECHNIQUE: 3 views of the foot were acquired. COMPARISON: None. FINDINGS: Bones: Mild hammertoe deformities 2nd through 5th digits appreciated. Joints: Mild degeneration 1st MTP and the 2nd through 5th interphalangeal joints. Soft tissues: No soft tissue abnormality. Moderate diffuse soft swelling noted most prominent forefoot and midfoot. There is moderate calcification Achilles and plantar tendon regions IMPRESSION: Moderate soft tissue swelling typically indicating cellulitis or edema. Other chronic findings Dictated by: Ernst Lopez M.D. on 01/15/2025 at 12:34 Approved by: Ernst Lopez M.D. on 01/15/2025 at 12:35
--- NOTE | 2025-01-14 11:39 | DI.RAD.S_ITS ---
PROCEDURE: XR WRIST RT 2V INDICATIONS: pain swelling @ wrist TECHNIQUE: For views of the wrist were acquired. COMPARISON: None. FINDINGS: Bones: A linear calcification adjacent the dorsal lunate on the lateral view is likely a small dystrophic calcification rather than a tiny avulsion fracture. No other osseous abnormality. Joints: Mild radiocarpal STT and 1st CMC degenerative change noted. Soft tissues: Mild chondrocalcinosis of the TFCC. Diffuse soft tissue swelling noted. IMPRESSION: Diffuse soft tissue swelling that likely edema or inflammation Other chronic findings as described Dictated by: Ernst Lopez M.D. on 01/15/2025 at 12:36 Approved by: Ernst Lopez M.D. on 01/15/2025 at 12:37
--- NOTE | 2025-01-14 11:39 | DI.RAD.S_ITS ---
PROCEDURE: XR FOOT LT MIN 3V INDICATIONS: pain/redness/swelling top of feet TECHNIQUE: 3 views of the foot were acquired. COMPARISON: None. FINDINGS: Bones: There is mild periarticular spurring in the 1st MTT joint on lateral view Joints: Mild degeneration the 1st MTP and 2nd through 5th interphalangeal joints. Soft tissues: Moderate diffuse soft tissue swelling noted predominant the forefoot and midfoot. Moderate calcification Achilles and plantar tendon insertion on the calcaneus IMPRESSION: Moderate forefoot and midfoot soft tissue swelling either representing edema or inflammation. Other chronic findings Dictated by: Ernst Lopez M.D. on 01/15/2025 at 12:32 Approved by: Ernst Lopez M.D. on 01/15/2025 at 12:34
[2025-01-14 12:07] LABS: Add Manual Diff / Slide Review NO; Basophils Absolute Auto 100 /uL (0-100); Basophils Percent Auto 1.1 % (0-2); Eosinophils Absolute Auto 200 /uL (0-450); Eosinophils Percent Auto 2.3 % (2-4); Hematocrit 37.6 % (41-53); Hemoglobin 12.3 g/dL (13.5-17.5); Lymphocytes Absolute Auto 1900 /uL (1100-4500); Lymphocytes Percent Auto 25.1 % (25-40); Mean Corpuscular HGB Conc 32.9 % (30-36); Mean Corpuscular Hemoglobin 29.6 PG (26-34); Mean Corpuscular Volume 90.1 fL (80-100); Monocytes Absolute Auto 600 /uL (0-900); Monocytes Percent Auto 7.9 % (3-14); Neutrophils Absolute Auto 4900 /uL (1500-7000); Neutrophils Percent Auto 63.6 % (50-75); Platelet Count 272 X10^3/uL (150-400); Red Blood Cell Count 4.17 X10^6/uL (4.5-5.9); Red Cell Distribution Width 12.7 % (11.6-14.8); White Blood Cell Count 7.8 X10^3/uL (4.5-11.0)
[2025-01-14 12:26] LABS: Alanine Aminotransferase 81 IU/L (<50); Albumin 4.3 g/dL (3.5-5.0); Albumin Globulin Ratio 1.1 (1.0-2.8); Alkaline Phosphatase 112 U/L (38-126); Aspartate Aminotransferase 44 IU/L (17-59); BUN Creatinine Ratio 14.9 (6-22); Bilirubin Total 0.8 mg/dL (0.2-1.3); Blood Urea Nitrogen 18 mg/dL (9-20); Calcium 9.8 mg/dL (8.4-10.2); Carbon Dioxide 24 mmol/L (22-32); Chloride 104 mmol/L (98-107); Estimated Glomerular Filt Rate > 60 mL/min (>60); Globulin 3.9 g/dL (1.7-4.1); Glucose 114 mg/dL (80-110); HEMOLYSIS < 15 (0-50); Potassium 4.1 mmol/L (3.4-5.1); Sodium 140 mmol/L (137-145); Total Protein 8.2 g/dL (6.3-8.2); Uric Acid 6.4 mg/dL (3.5-8.5)
[2025-01-14 12:34] LABS: Rheumatoid Factor < 8.6 IU/mL (<12.0)
[2025-01-14 13:44] LABS: Erythrocyte Sedimentation Rate 55 MM/HR (0-15)
== END ==
PROVIDERS: PCP Family Medicine; Referring Provider Physician Assistant; Visit Provider Physician Assistant
DX: M10.9 Gout, unspecified (principal); M79.89 Other specified soft tissue disorders
CPT/HCPCS: 36415; 73110; 73630; 80053; 84550; 85025; 85651; 86430

== ENCOUNTER → 2025-01-26 14:10 | Outpatient (CLI) | payer MEDICARE, OTHER, SELFPAY ==
[2025-01-28 14:36] LABS: Fecal Immunochemical Test Negative (Negative)
== END ==
PROVIDERS: PCP Family Medicine; Referring Provider Family Medicine; Visit Provider Family Medicine
DX: Z00.00 Encounter for general adult medical examination without abnormal findings (principal); Z12.11 Encounter for screening for malignant neoplasm of colon; E78.5 Hyperlipidemia, unspecified; Z11.59 Encounter for screening for other viral diseases
CPT/HCPCS: 82274

== ENCOUNTER 2025-02-11 02:49 | Emergency (ER) | payer MEDICARE, OTHER, SELFPAY ==
--- NOTE | 2025-02-11 02:52 | DI.RAD.S_ITS ---
PROCEDURE: XR CHEST 1V INDICATIONS: chest pain TECHNIQUE: One view of the chest was acquired. COMPARISON: [facility], , XR CHEST 1V, 07/19/2022, 9:07. [facility], , CHEST 1 VIEW, 10/31/2015, 7:46. FINDINGS: Surgical changes and devices: None. Lungs and pleura: Lungs are clear. No pleural effusions or pneumothorax. Mediastinum: Mediastinal contours appear normal. Heart size is normal. Bones and chest wall: No suspicious bony lesions. Overlying soft tissues appear unremarkable. IMPRESSION: No acute cardiopulmonary abnormality is seen. Findings are concordant with preliminary interpretation provided by [facility]. Dictated by: Lance Nagel M.D. on 02/11/2025 at 8:24 Approved by: Lance Nagel M.D. on 02/11/2025 at 8:24
--- NOTE | 2025-02-11 02:52 | EKG_ITS ---
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
--- NOTE | 2025-02-11 02:53 | ED_ITS ---
HPI - Chest Pain General Chief Complaint: Chest Pain Stated Complaint: chest pain Time Seen by Provider: 02/11/25 02:52 History of Present Illness HPI narrative: 69-year-old male with past medical history of hypertension hyperlipidemia presenting for chest pressure. He states that this started spontaneously at around 11:00 p.m., denies any other symptoms such as headache visual disturbances shortness breath fever chills nausea vomiting abdominal pain or any other GI/ symptoms at this time he states that he does not have the symptoms now, states that the symptoms only lasted for few seconds, denies any recent travel no known sick contacts. Related Data Previous Rx's Medication Instructions Recorded potassium chloride 10 mEq 10 meq PO DAILY #90 tabs 11/30/23 tablet,extended release(part/cryst) amlodipine 10 mg tablet 10 mg PO DAILY #90 tabs 04/04/24 atenolol 100 mg tablet 100 mg PO DAILY #90 tabs 04/04/24 atorvastatin 20 mg tablet 20 mg PO DAILY #90 tabs 04/04/24 fluticasone propionate 250 1 inh inhalation BID #180 ea 04/04/24 mcg/actuation blister powder for inhalation losartan 100 mg tablet 100 mg PO DAILY #90 tabs 04/04/24 pantoprazole 40 mg tablet,delayed 40 mg PO DAILY #90 tabs 04/04/24 release albuterol sulfate 90 mcg/actuation 2 puff inhalation Q4H PRN 09/17/24 aerosol inhaler wheezing, SOB #25.5 grams colchicine 0.6 mg tablet 0.6 mg PO DAILY PRN gout flare #90 02/03/25 tabs Allergies Allergy/AdvReac Type Severity Reaction Status Date / Time lisinopril [LISINOPRIL] Allergy Unknown tongue Verified 02/03/25 14:10 swell Sulfa (Sulfonamide Allergy Unknown Verified 02/03/25 14:10 Antibiotics) Review of Systems Review of Systems Narrative: General: Denies fever, chills, weight loss HEENT: Denies headache, eye drainage, eye irritation, head trauma, sore throat, voice change Cardiovascular: Positive chest pain, denies palpitations, tachycardia Respiratory: Denies any shortness of breath, cough, wheeze, stridor GI/: Denies any abdominal pain, nausea, vomiting, diarrhea, bright red blood per rectum, melanotic stools, urinary frequency, urinary retention, dysuria, hematuria MSK: Denies any joint pain, muscle pains, swelling Skin: Denies any rashes, lesions, discoloration Neuro: Denies any headache, lightheadedness, dizziness, fainting, weakness Psych: Denies SI/HI Patient History Medical History Gout Microalbuminuria Encounter for initial annual wellness visit (AWV) in Medicare patient Hemorrhoid IFG (impaired fasting glucose) Hyperlipidemia Benign essential HTN CKD (chronic kidney disease), stage III Surgical History Anesthesia History of cholecystectomy (~1994) Family History Father Cancer Mother Cancer Hypertension Social History Smoking Status: Never smoker tobacco type: cigarettes alcohol intake frequency: holidays/special occasions only Exam Narrative Exam Narrative: General: Cooperative, well-developed, not in acute distress HEENT: Normocephalic, atraumatic, PERRLA, normal sclera, eyelids normal Neck: Active full range of motion, atraumatic Chest: Normal to inspection, negative crepitus, no overlying erythema ecchymosis Respiratory: Normal respiratory effort, not in acute respiratory distress, clear to auscultation bilaterally negative cough, wheeze, tachypnea, rhonchi, rales Cardiology: Regular rate rhythm negative gallop, murmur, rubs GI/: No tenderness to palpation, soft, non rigid, normal to inspection, exam deferred MSK: Full active range of motion in all 4 extremities, atraumatic, no tenderness to palpation of any bony prominences Skin: No rashes or lesions noted Neuro: Alert awake oriented x3, moves all 4 extremities spontaneously, cranial nerves intact, able to answer all questions appropriately follows commands appropriately Psych: Cooperative, negative suicidal or homicidal ideations Initial Vital Signs Initial Vital Signs: Vital Signs Temperature 97.4 F L 02/11/25 02:58 Pulse Rate 92 H 02/11/25 02:58 Respiratory Rate 16 02/11/25 02:58 Blood Pressure 141/77 H 02/11/25 02:58 Pulse Oximetry 99 04/09/25 02:58 Oxygen Delivery Method Room Air 02/11/25 02:58 Course Orders Ordered: ED Orders 02/11/25 02:52 XR chest 1V Stat EKG-12 Lead Stat 02/11/25 03:15 Complete Blood Count AUTO DIFF Stat Comprehensive Metabolic Panel Stat Lipase Stat MAG [Magnesium] Stat NT-proBNP (BNP-Adult 18+) Stat PTT Partial Thromboplastin Franc Stat Prothrombin Time INR Stat Troponin & CK Cardiac Panel Stat Discontinued Medications Aspirin (Aspirin 81 Mg Chew Tab) 324 mg PO NOW ONE Stop: 02/11/25 02:53 Last Admin: 02/11/25 03:20 Dose: 324 mg Documented By: MR Vital Signs Vital signs: Vital Signs - 8 hr 02/11/25 02:58 02/11/25 02:59 02/11/25 03:00 Temperature 97.4 F L Pulse Rate 92 H 95 H Respiratory Rate 16 14 Blood Pressure 141/77 H 141/77 H Pulse Oximetry 99 98 Oxygen Delivery Method Room Air 02/11/25 03:00 02/11/25 03:30 02/11/25 03:30 Temperature Pulse Rate 94 H 85 Respiratory Rate 13 13 Blood Pressure 138/69 Pulse Oximetry 99 98 Oxygen Delivery Method MDM - Chest Pain Differential Diagnosis Differential diagnosis: Likely pneumothorax, atypical chest pain, st elevation myocardial infarction, chest pain and other (Electrolyte abnormality, pneumonia) Lab Data 02/11/25 03:15 02/11/25 03:15 Labs: Lab Results 02/11/25 Range/Units 03:15 WBC 5.8 (4.5-11.0) X10^3/uL RBC 4.24 L (4.5-5.9) X10^6/uL Hgb 12.6 L (13.5-17.5) g/dL Hct 38.5 L (41-53) % MCV 90.7 (80-100) fL MCH 29.8 (26-34) PG MCHC 32.8 (30-36) % RDW 12.9 (11.6-14.8) % Plt Count 201 (150-400) X10^3/uL Neut % (Auto) 52.1 (50-75) % Lymph % (Auto) 35.4 (25-40) % [place] % (Auto) 8.6 (3-14) % Eos % (Auto) 3.0 (2-4) % Baso % (Auto) 0.9 (0-2) % Neut # (Auto) 3000 (3338-6682) /uL Lymph # (Auto) 2100 (2194-4717) /uL [place] # (Auto) 500 (0-900) /uL Eos # (Auto) 200 (0-450) /uL Baso # (Auto) 100 (0-100) /uL PT 13.3 H (9.4-12.5) SECONDS INR 1.2 (0.9-1.3) APTT 36 (25.1-36.5) SECONDS Sodium 141 (137-145) mmol/L Potassium 3.7 (3.4-5.1) mmol/L Chloride 109 H (98-107) mmol/L Carbon Dioxide 24 (22-32) mmol/L BUN 15 (9-20) mg/dL Creatinine 1.24 (0.66-1.25) mg/dL Estimated GFR > 60 (>60) mL/min BUN/Creatinine Ratio 12.1 (6-22) Glucose 115 H (80-110) mg/dL Calcium 9.4 (8.4-10.2) mg/dL Magnesium 1.8 (1.6-2.3) mg/dL Total Bilirubin 0.6 (0.2-1.3) mg/dL AST 37 (17-59) IU/L ALT 50 H (<50) IU/L Alkaline Phosphatase 109 (38-126) U/L Total Creatine Kinase 105 (55-170) U/L Troponin I < 0.012 (0.01-0.034) ng/mL NT-Pro-B Natriuret Pep 45 (<125) pg/mL Total Protein 7.9 (6.3-8.2) g/dL Albumin 4.3 (3.5-5.0) g/dL Globulin 3.6 (1.7-4.1) g/dL Albumin/Globulin Ratio 1.2 (1.0-2.8) Lipase 106 (23-300) U/L ECG Data Interpretation: EKG interpreted by ED physician sinus 97 beats per minute, left axis deviation, nonspecific ST changes no STEMI MDM Narrative Medical decision making narrative: 69-year-old male with a past medical history of hypertension hyperlipidemia presenting for left-sided chest pressure started spontaneously at around 2300 on 02/10/2025. At time of evaluation patient without any chest pain shortness of breath, EKG nonischemic in nature, lab work without any leukocytosis, Chem panel unremarkable, troponin negative, BNP 45, chest x-ray without any acute cardiopulmonary abnormalities, patient did receive full-dose aspirin here in the emergency department. Still without any chest pain shortness breath or any other symptoms,Patient with a heart score of 3. He was instructed to follow up with Cardiology and primary care in outpatient setting to obtain stress test and echo in outpatient setting, he was given strict return precautions he verbalized understanding of this and agrees to being discharged home with outpatient follow up Discharge Plan Departure Patient Disposition: Home Clinical Impression: Chest pain Activity Restrictions/Additional Instructions: Please follow up with Cardiology and primary care in outpatient setting, you may begin taking a baby aspirin a day Please read the discharge instructions sheet carefully and bring all papers to all doctor follow-up visits, as it may contain information that your doctor may want to see. Disease processes change and evolve, if your symptoms worsen or if you develop any new symptoms that are concerning to you please return for evaluation. Your evaluation today does not show any evidence of any life- threatening/serious illnesses requiring admission to the hospital or surgery. Please follow-up with your doctor for re-evaluation in approximately 1 day. Seek immediate medical attention for any worrisome symptoms. *If you do not have a primary care provider please contact the [facility] Resource line at [phone]. They will ask some questions about your medical history and help get you set up with a doctor in the community. Prescriptions: No Action albuterol sulfate 90 mcg/actuation HFA aerosol inhaler 2 puff inhalation Q4H PRN (Reason: wheezing, SOB) Qty: 25.5 3RF potassium chloride 10 mEq tablet,ER particles/crystals 10 meq PO DAILY Qty: 90 3RF amlodipine 10 mg tablet 10 mg PO DAILY Qty: 90 3RF atenolol 100 mg tablet 100 mg PO DAILY Qty: 90 3RF atorvastatin 20 mg tablet 20 mg PO DAILY Qty: 90 3RF fluticasone propionate 250 mcg/actuation blister with device 1 inh inhalation BID Qty: 180 3RF losartan 100 mg tablet 100 mg PO DAILY Qty: 90 3RF pantoprazole 40 mg tablet,delayed release (DR/EC) 40 mg PO DAILY Qty: 90 3RF colchicine 0.6 mg tablet 0.6 mg PO DAILY PRN (Reason: gout flare) Qty: 90 3RF Rx Instructions: until symptoms resolve Referrals: Andreina Crouch MD [Physician] - 3-5 days Karen Waller DO [Primary Care Provider] - Stand Alone Forms: Patient Portal/API/Survey
[2025-02-11 02:58] VITALS: BP 141/77; PULSE 92; RESP 16; TEMP 36.3; O2SAT 99; BMI 34.9
[2025-02-11 02:59] VITALS: PULSE 95; RESP 14; O2SAT 98
[2025-02-11 03:00] VITALS: BP 141/77; PULSE 94; RESP 13; O2SAT 99
[2025-02-11] MEDS: ASPIRIN 81 MG CHEW TAB 324 MG PO (03:20)
[2025-02-11 03:25] LABS: Add Manual Diff / Slide Review NO; Basophils Absolute Auto 100 /uL (0-100); Basophils Percent Auto 0.9 % (0-2); Eosinophils Absolute Auto 200 /uL (0-450); Hematocrit 38.5 % (41-53); Hemoglobin 12.6 g/dL (13.5-17.5); Lymphocytes Absolute Auto 2100 /uL (1100-4500); Lymphocytes Percent Auto 35.4 % (25-40); Mean Corpuscular HGB Conc 32.8 % (30-36); Mean Corpuscular Hemoglobin 29.8 PG (26-34); Mean Corpuscular Volume 90.7 fL (80-100); Monocytes Absolute Auto 500 /uL (0-900); Monocytes Percent Auto 8.6 % (3-14); Neutrophils Absolute Auto 3000 /uL (1500-7000); Neutrophils Percent Auto 52.1 % (50-75); Platelet Count 201 X10^3/uL (150-400); Red Blood Cell Count 4.24 X10^6/uL (4.5-5.9); Red Cell Distribution Width 12.9 % (11.6-14.8); White Blood Cell Count 5.8 X10^3/uL (4.5-11.0)
[2025-02-11 03:30] VITALS: BP 138/69; PULSE 85; RESP 13; O2SAT 98
[2025-02-11 03:44] LABS: INR 1.2 (0.9-1.3); Prothrombin Time 13.3 SECONDS (9.4-12.5)
[2025-02-11 03:47] LABS: PTT Partial Thromboplastin Tim 36 SECONDS (25.1-36.5)
[2025-02-11 03:59] LABS: Alanine Aminotransferase 50 IU/L (<50); Albumin 4.3 g/dL (3.5-5.0); Albumin Globulin Ratio 1.2 (1.0-2.8); Alkaline Phosphatase 109 U/L (38-126); Aspartate Aminotransferase 37 IU/L (17-59); BUN Creatinine Ratio 12.1 (6-22); Bilirubin Total 0.6 mg/dL (0.2-1.3); Blood Urea Nitrogen 15 mg/dL (9-20); Calcium 9.4 mg/dL (8.4-10.2); Carbon Dioxide 24 mmol/L (22-32); Chloride 109 mmol/L (98-107); Creatine Kinase 105 U/L (55-170); Estimated Glomerular Filt Rate > 60 mL/min (>60); Globulin 3.6 g/dL (1.7-4.1); Glucose 115 mg/dL (80-110); HEMOLYSIS < 15 (0-50); Lipase 106 U/L (23-300); Magnesium 1.8 mg/dL (1.6-2.3); Potassium 3.7 mmol/L (3.4-5.1); Sodium 141 mmol/L (137-145); Total Protein 7.9 g/dL (6.3-8.2)
[2025-02-11 04:00] VITALS: BP 126/66; PULSE 80; RESP 12; O2SAT 95
[2025-02-11 04:08] LABS: NT-proBNP (BNP-Adult 18+) 45 pg/mL (<125)
[2025-02-11 04:11] LABS: Troponin I < 0.012 ng/mL (0.01-0.034)
[2025-02-11 04:30] VITALS: BP 131/84; PULSE 79; RESP 16; O2SAT 98
== END 2025-02-11 04:50 | disposition home or self-care (01) ==
PROVIDERS: Emergency Provider Student in an Organized Health Care Education/Training Program; PCP Family Medicine
DX: R07.9 Chest pain, unspecified (principal)
CPT/HCPCS: 36415; 71045; 80053; 82550; 83690; 83735; 83880; 84484; 85025; 85610; 85730; 93005; 99284

== ENCOUNTER → 2025-04-20 15:02 | Outpatient (CLI) | payer MEDICARE, OTHER, SELFPAY ==
[2025-04-20 16:45] LABS: Hematocrit 38.4 % (41-53); Hemoglobin 12.6 g/dL (13.5-17.5); Mean Corpuscular HGB Conc 32.9 % (30-36); Mean Corpuscular Hemoglobin 29.7 PG (26-34); Platelet Count 214 X10^3/uL (150-400); Red Blood Cell Count 4.26 X10^6/uL (4.5-5.9); Red Cell Distribution Width 12.5 % (11.6-14.8); White Blood Cell Count 6.5 X10^3/uL (4.5-11.0)
[2025-04-20 16:51] LABS: Hemoglobin A1C% w Est Avg Glu 4.7 % (4.0-6.0)
[2025-04-20 17:12] LABS: Blood Urea Nitrogen 15 mg/dL (9-20); Calcium 9.3 mg/dL (8.4-10.2); Carbon Dioxide 26 mmol/L (22-32); Chloride 106 mmol/L (98-107); Cholesterol 120 mg/dL (140-199); Estimated Glomerular Filt Rate > 60 mL/min (>60); Glucose 104 mg/dL (70-99); HDL Cholesterol 27 mg/dL (40-60); HEMOLYSIS < 15 (0-50); LDL Cholesterol Calculated 64 mg/dL (<100); Potassium 4.1 mmol/L (3.4-5.1); Sodium 142 mmol/L (137-145); Triglycerides 144 mg/dL (35-150)
== END ==
PROVIDERS: PCP Family Medicine; Referring Provider Family Medicine; Visit Provider Family Medicine
DX: Z00.00 Encounter for general adult medical examination without abnormal findings (principal); R73.01 Impaired fasting glucose; E78.5 Hyperlipidemia, unspecified; I10 Essential (primary) hypertension; N18.30 Chronic kidney disease, stage 3 unspecified; M10.9 Gout, unspecified
CPT/HCPCS: 36415; 80048; 80061; 83036; 84550; 85027